=== PATIENT | female | born 2005 | race Caucasian/White ===

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

== ENCOUNTER 2023-02-06 08:28 | Emergency (ER) | payer OTHER ==
[2023-02-06 08:34] VITALS: RESP 18; BMI 20.8
[2023-02-06] MEDS ORDERED: ACETAMINOPHEN 1000 MG/100 ML BAG IVPB ONE (10:07)
[2023-02-06] MEDS ORDERED: LACTATED RINGERS SOLUTION 1000 ML INFUS.BAG IV ONE (10:07)
[2023-02-06] MEDS ORDERED: ACETAMINOPHEN INJECTION 100 ML IVPB ONE (10:13)
[2023-02-06 10:56] LABS: POTASSIUM 3.7 mmol/L (3.5-5.1)
[2023-02-06 10:59] LABS: BLOOD UREA NITROGEN 7.6 mg/dL (7-18); CALCIUM 8.9 mg/dL (8.5-10.1); MAGNESIUM 2.2 mg/dL (1.8-2.4)
[2023-02-06 11:02] LABS: BASO % 0.1 % (0-2.0); CREATININE 0.7 mg/dL (0.55-1.3); EOS % 0.5 % (0-4.5); HEMATOCRIT 36.1 % (32.4-45.2); HEMOGLOBIN 11.9 GM/dL (10.7-15.3); LYMPH % 17.2 % (8-40); MCH 25.7 pg (25.7-33.7); MEAN PLT VOLUME 7.8 fl (7.5-11.1); MONO % 8.4 % (3.8-10.2); NEUT % 73.8 % (42.8-82.8); PHOSPHOROUS 2.3 mg/dL (2.5-4.9); PLATELET COUNT 232 10^3/uL (134-434); RBC 4.63 M/mm3 (3.60-5.2); RDW 15.8 % (11.6-15.6); WHITE BLOOD COUNT 6.7 K/mm3 (4.0-10.0)
[2023-02-06 11:04] LABS: BILIRUBIN,TOTAL 0.4 mg/dL (0.2-1); TOT PROT 7.4 g/dl (6.4-8.2)
[2023-02-06 11:18] VITALS: BP 100/53; PULSE 76; TEMP 99
== END 2023-02-06 12:02 | disposition home or self-care (01) ==
LOC: JER 08:28
PROC: 3E033NZ Introduction of Analgesics, Hypnotics, Sedatives into Peripheral Vein, Percutaneous Approach (ICD-10-PCS; principal; 2023-02-06)
DX: R00.2 Palpitations (principal); R42 Dizziness and giddiness; Z20.822 Contact with and (suspected) exposure to COVID-19
CPT/HCPCS: 0241U-QW; 36415; 71046-TC-FY; 80053; 83735; 84100; 84443; 84484; 84703; 85025; 93005; 93010; 99284-25

== ENCOUNTER 2023-07-12 22:18 | Emergency (ER) | payer OTHER ==
[2023-07-12 22:27] VITALS: BP 104/63; PULSE 94; RESP 18; TEMP 98.2; BMI 20.6
[2023-07-12] MEDS ORDERED: FAMOTIDINE 20 MG/50 ML IVPB 20 MG/50 ML MG IVPB ONE (22:51)
[2023-07-12] MEDS ORDERED: ACETAMINOPHEN INJECTION 100 ML IVPB ONE (22:51)
[2023-07-12] MEDS: SODIUM CHLORIDE 1,000 ML IV STA (22:54)
[2023-07-12] MEDS: ACETAMINOPHEN 1000 MG/100 ML BAG IVPB ONE (22:55)
[2023-07-12] MEDS: FAMOTIDINE 20 MG/50 ML IVPB 20 MG/50 ML MG IVPB ONE (23:08)
[2023-07-12 23:10] LABS: HEMATOCRIT 37.8 % (32.4-45.2); HEMOGLOBIN 12.8 G/dL (10.7-15.3); MCH 27.1 pg (25.7-33.7); MCHC 33.7 g/dl (32.0-36.0); MEAN CELL VOLUME 80.4 fl (80-96); MEAN PLT VOLUME 9.3 fl (7.5-11.1); PLATELET COUNT 174.1 10^3/uL (134-434); RDW 16.5 % (11.6-15.6); WHITE BLOOD COUNT 4.4 10^3/uL (4.0-10.8)
[2023-07-12 23:22] LABS: ALBUMIN 4.5 g/dl (3.4-5.0); BILIRUBIN,TOTAL 0.5 mg/dl (0.2-1); CALCIUM 9.2 mg/dl (8.5-10.1); CREATININE 0.6 mg/dl (0.6-1.3); HCG,QUALITATIVE URINE Negative; POTASSIUM 3.4 mmol/L (3.5-5.1); TOT PROT 7.2 g/dl (6.4-8.2)
[2023-07-12 23:34] LABS: ANISOCYTOSIS 1+; PLATELET ESTIMATE ADEQUATE
== END 2023-07-13 00:31 | disposition home or self-care (01) ==
LOC: FER 22:18
PROC: 3E033GC Introduction of Other Therapeutic Substance into Peripheral Vein, Percutaneous Approach (ICD-10-PCS; principal; 2023-07-12)
PROC: 3E033NZ Introduction of Analgesics, Hypnotics, Sedatives into Peripheral Vein, Percutaneous Approach (ICD-10-PCS; 2023-07-12)
DX: R10.31 Right lower quadrant pain (principal); R11.2 Nausea with vomiting, unspecified; R19.7 Diarrhea, unspecified; R10.32 Left lower quadrant pain; Z20.822 Contact with and (suspected) exposure to COVID-19
CPT/HCPCS: 0241U-QW; 36415; 80053; 81003; 81015; 84703; 85027; 87086; 99284-25; J0131

== ENCOUNTER 2023-12-25 02:57 | Emergency (ER) | payer BC, OTHER ==
[2023-12-25 03:07] VITALS: BMI 20.2
[2023-12-25 03:21] LABS: HCG,QUALITATIVE URINE Positive
[2023-12-25 03:24] LABS: EPI CELLS 36 /uL (0-25.1); HYALINE CASTS 2 /uL (0-3.1); URINE APPEARANCE CLEAR; URINE BACTERIA 1002 /uL (0-1359); URINE BILIRUBIN NEGATIVE (NEGATIVE); URINE COLOR YELLOW; URINE GLUCOSE (UA) NEGATIVE (NEGATIVE); URINE KETONE NEGATIVE (NEGATIVE); URINE LEUK ESTERASE 1+ (NEGATIVE); URINE NITRITE NEGATIVE (NEGATIVE); URINE PROTEIN NEGATIVE (NEGATIVE); URINE RBC 18 /uL (0-23.9); URINE WBC 26 /uL (0-25.8)
[2023-12-25] MEDS ORDERED: MAG HYDROX/AL HYDROX/SIMETH 30 ML UNIT-DOSE CUP ONE (04:03)
[2023-12-25] MEDS ORDERED: ACETAMINOPHEN INJECTION 100 ML ONE (04:03)
[2023-12-25] MEDS ORDERED: FAMOTIDINE 20 MG/50 ML IVPB 20 MG/50 ML MG IVPB ONE (04:03)
[2023-12-25] MEDS: MAG HYDROX/AL HYDROX/SIMETH 30 ML UNIT-DOSE CUP PO ONE (04:12)
[2023-12-25] MEDS: FAMOTIDINE 20 MG/50 ML IVPB 20 MG/50 ML MG IVPB ONE (04:36)
[2023-12-25] MEDS: SODIUM CHLORIDE 1,000 ML IV STA (04:36)
[2023-12-25] MEDS: ACETAMINOPHEN 1000 MG/100 ML BAG IVPB ONE (04:36)
[2023-12-25 04:49] LABS: BASO % 0.2 % (0-2.0); EOS % 1.2 % (0-4.5); HEMOGLOBIN 11.2 GM/dL (10.7-15.3); LYMPH % 35.7 % (8-40); MEAN CELL VOLUME 82.5 fl (80-96); MEAN PLT VOLUME 7.9 fl (7.5-11.1); MONO % 8.3 % (3.8-10.2); NEUT % 54.6 % (42.8-82.8); PLATELET COUNT 188 10^3/uL (134-434); RDW 16.1 % (11.6-15.6); WHITE BLOOD COUNT 4.7 K/mm3 (4.0-10.0)
[2023-12-25 05:02] LABS: POTASSIUM 3.9 mmol/L (3.5-5.1)
[2023-12-25 05:04] LABS: ALBUMIN 3.5 g/dl (3.4-5.0); CALCIUM 8.5 mg/dL (8.5-10.1); MAGNESIUM 1.9 mg/dL (1.8-2.4)
[2023-12-25 05:05] LABS: BLOOD UREA NITROGEN 8.9 mg/dL (7-18)
[2023-12-25 05:07] LABS: CREATININE 0.4 mg/dL (0.55-1.3)
[2023-12-25 05:09] LABS: BILIRUBIN,TOTAL 0.2 mg/dL (0.2-1); TOT PROT 6.1 g/dl (6.4-8.2)
[2023-12-25] MEDS ORDERED: SIMETHICONE 80 MG TAB.CHEW (FP) ONE (06:34)
[2023-12-25] MEDS: POLYETHYLENE GLYCOL (HEALTHYLAX) 3350 17 GM PACKET PO SCH (06:45)
[2023-12-25] MEDS: SIMETHICONE 80 MG TAB.CHEW (FP) PO ONE (06:45)
[2023-12-25] MEDS: POLYETHYLENE GLYCOL (HEALTHYLAX) 3350 17 GM PACKET PO ONE (07:15)
[2023-12-25] MEDS ORDERED: CEPHALEXIN MONOHYDRATE 500 MG CAPSULE (UD) ONE (08:44)
[2023-12-25] MEDS: CEPHALEXIN MONOHYDRATE 500 MG CAPSULE (UD) PO ONE (09:04)
[2023-12-25 09:09] VITALS: BP 91/56; PULSE 72; RESP 16; TEMP 98
== END 2023-12-25 09:09 | disposition home or self-care (01) ==
LOC: JER 02:57
PROC: 3E033GC Introduction of Other Therapeutic Substance into Peripheral Vein, Percutaneous Approach (ICD-10-PCS; principal; 2023-12-25)
PROC: 3E033NZ Introduction of Analgesics, Hypnotics, Sedatives into Peripheral Vein, Percutaneous Approach (ICD-10-PCS; 2023-12-25)
DX: O26.891 Other specified pregnancy related conditions, first trimester (principal); R10.84 Generalized abdominal pain; R63.0 Anorexia; O21.9 Vomiting of pregnancy, unspecified; O99.611 Diseases of the digestive system complicating pregnancy, first trimester; K59.00 Constipation, unspecified; Z3A.01 Less than 8 weeks gestation of pregnancy
CPT/HCPCS: 36415; 76817-TC; 80053; 81003; 83735; 84702; 84703; 85025; 86850; 86900; 86901; 87086; 99284-25; J0131